=== PATIENT | male | born 1935 | race Caucasian/White ===

== ENCOUNTER 2018-08-12 09:46 | Emergency (ER) | payer MEDICARE, OTHER ==
[~2018-08-12] VITALS: Ht 188 cm; Wt 83.5 kg
[~2018-08-12 09:46] MED LIST: ANTI1CAP3 PO; FISH1CAP15 PO; IRON1TAB94 PO; LOSA100T7 PO; PNT40TEC PO; SIMV40TA4 PO
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
--- OUTSIDE RECORDS SUMMARY | 2018-08-12 09:51 | XMS REPORT | Continuity of Care Document ---
Author Author [facility] Organization [facility] Address Unknown Phone Unavailable Care Team Providers Care Supervisor Doping Name Role Phone MARGARITA STEINER MD PP Insurance Providers Payer Name Policy Number Subscriber Name Relationship [facility] [id number] Hugo Schuler Self / Same As Patient Wps Medicare [id number] Hugo Schuler Self / Same As Patient Advance Directives Directive Response Recorded Date Advance Directives N 04/27/13 10:28am Health Care Power of [employer] Logger N 04/27/13 10:28am Organ Donor Y 04/27/13 10:28am Problems No Known Problems or Medical conditions. Allergies, Adverse Reactions, Alerts Allergen Type Severity Reaction Last Updated No Known Drug Allergies 04/27/13 Medications Medication Dose Units Route Sig Qty Days Pantoprazole Sodium (Protonix) 1 Tab PO DAILY 30 Fish Oil/Dha/Epa (Fish Oil 1,200 Mg Fish Oil) 1200 Mg PO DAILY Iron &Iron Asp Gly/Fa/Mv,Min38 (Iron Tablet) 1 Tab PO DAILY Antiox #11/Om3/Dha/Epa/Lut/Mora (Ocuvite Adult 50+ Softgel) 1 Cap PO DAILY Simvastatin 20 Mg PO HS Losartan Potassium 50 Mg PO DAILY Response Recorded Date/Time Status not known Unknown Results Test Date Result Interp. Ref. Range Absolute Reticulocyte Count April 12, 2013 9:30am 27 10^3/uL N 22-82 Acanthocytes April 12, 2013 9:30am SLIGHT - Alanine Aminotransferase (ALT/SGPT) April 12, 2013 9:30am 39 U/L N 30-65 Albumin April 12, 2013 9:30am 2.7 G/DL L 3.4-5.0 Alkaline Phosphatase April 12, 2013 9:30am 120 U/L N 50-136 Anisocytosis April 12, 2013 9:30am MODERATE - Aspartate Amino Transf (AST/SGOT) April 12, 2013 9:30am 18 U/L N 15-37 Atypical Lymphocytes April 12, 2013 9:30am 1 % - BUN/Creatinine Ratio April 12, 2013 9:30am 20 - Band Neutrophils April 12, 2013 9:30am 7 % - Basophils # (Auto) April 12, 2013 9:30am 0.0 10^3/uL N 0.0-0.1 Basophils % (Manual) April 12, 2013 9:30am 1 % - Basophils (%) (Auto) April 12, 2013 9:30am 0 % N 0-10 Blood Urea Nitrogen April 12, 2013 9:30am 22 MG/DL H 7-18 Calcium Level April 12, 2013 9:30am 9.1 MG/DL N 8.5-10.1 Carbon Dioxide Level April 12, 2013 9:30am 27 MMOL/L N 21-32 Chloride Level April 12, 2013 9:30am 102 MMOL/L N 101-110 Creatinine April 12, 2013 9:30am 1.1 MG /DL N 0.6-1.3 Elliptocytes April 12, 2013 9:30am SLIGHT - Eosinophils # (Auto) April 12, 2013 9:30am 0.3 10^3/uL N 0.0-0.3 Eosinophils % (Manual) April 12, 2013 9:30am 2 % - Eosinophils (%) (Auto) April 12, 2013 9:30am 2 % N 0-10 Glucose Level April 12, 2013 9:30am 103 MG/DL N 74-106 Hematocrit April 12, 2013 9:30am 39 % L 40-54 Hemoglobin April 12, 2013 9:30am 13.1 G /DL L 13.3-17.7 Lactate Dehydrogenase April 12, 2013 9:30am 150 U/L N 115-218 Lymphocytes # (Auto) April 12, 2013 9:30am 1.7 X 10^3 N 1.0-4.0 Lymphocytes % (Manual) April 12, 2013 9:30am 10 % - Lymphocytes (%) (Auto) April 12, 2013 9:30am 13 % N 12-44 Mean Corpuscular Hemoglobin April 12, 2013 9:30am 28 PG N 25-34 Mean Corpuscular Hemoglobin Concent April 12, 2013 9:30am 34 G/DL N 32-36 Mean Corpuscular Volume April 12, 2013 9:30am 82 FL N 80-99 Mean Platelet Volume April 12, 2013 9:30am 12.4 FL H 7.4-10.4 Microcytosis April 12, 2013 9:30am SLIGHT - Monocytes # (Auto) April 12, 2013 9:30am 1.0 X 10^3 N 0.0-1.0 Monocytes % (Manual) April 12, 2013 9:30am 6 % - Monocytes (%) (Auto) April 12, 2013 9:30am 8 % N 0-12 Neutrophils # (Auto) April 12, 2013 9:30am 10.2 X 10^3 H 1.8-7.8 Neutrophils % (Manual) April 12, 2013 9:30am 67 % - Neutrophils (%) (Auto) April 12, 2013 9:30am 77 % H 42-75 Percent Reticulocyte Count April 12, 2013 9:30am 0.57 % N 0.50-2.40 Platelet Count April 12, 2013 9:30am 90 10^3/uL L 130-400 Poikilocytosis April 12, 2013 9:30am SLIGHT - Potassium Level April 12, 2013 9:30am 4.0 MMOL/L N 3.6-5.0 Reactive Lymphocytes April 12, 2013 9:30am 6 % - Red Blood Count April 12, 2013 9:30am 4.76 10^6/uL N 4.35-5.85 Red Cell Distribution Width April 12, 2013 9:30am 22.1 % H 10.0-14.5 Rouleau April 12, 2013 9:30am SLIGHT - Schistocytes April 12, 2013 9:30am SLIGHT - Sodium Level April 12, 2013 9:30am 133 MMOL/L L 135-145 Tear Drop Cells April 12, 2013 9:30am SLIGHT - Total Bilirubin April 12, 2013 9:30am 0.7 MG/DL N 0.0-1.0 Total Protein April 12, 2013 9:30am 7.2 G/DL N 6.4-8.2 White Blood Count April 12, 2013 9:30am 13.3 10^3/uL H 4.3-11.0 Estimat Glomerular Filtration Rate April 12, 2013 9:30am > 60 - Encounters Encounter Location Date/Time Pre-admitted Inpatient [facility] 10/05
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
[2018-08-12 10:11] LABS: HEMOGLOBIN 14.3 G/DL (13.3-17.7); MEAN PLATELET VOLUME 9.8 FL (7.4-10.4); RED BLOOD COUNT 4.88 10^6/uL (4.35-5.85); RED CELL DISTRIBUTION WIDTH 13.5 % (10.0-14.5); WHITE BLOOD COUNT 8.2 10^3/uL (4.3-11.0)
[2018-08-12 10:30] LABS: ALANINE AMINOTRANSFERASE 28 U/L (0-55); ALKALINE PHOSPHATASE 79 U/L (40-136); BILIRUBIN,DIRECT 0.3 MG/DL (0.0-0.3); BILIRUBIN,INDIRECT 0.5 MG/DL; BILIRUBIN,TOTAL 0.8 MG/DL (0.1-1.0); BUN/CREATININE RATIO 12; CALCIUM 9.2 MG/DL (8.5-10.1); CARBON DIOXIDE 20 MMOL/L (21-32); CHLORIDE 105 MMOL/L (98-107); CREATININE SERUM 1.05 MG/DL (0.60-1.30); GFR ESTIMATED > 60; GLUCOSE 122 MG/DL (70-105); POTASSIUM 3.8 MMOL/L (3.6-5.0); SODIUM 136 MMOL/L (135-145); TOTAL PROTEIN 7.4 GM/DL (6.4-8.2)
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
[2018-08-12 11:43] LABS: BILIRUBIN,URINE NEGATIVE (NEGATIVE); CLARITY,URINE CLEAR; COLOR,URINE YELLOW; GLUCOSE, URINE (UA) NEGATIVE (NEGATIVE); KETONES,URINE NEGATIVE (NEGATIVE); LEUKOCYTE ESTERASE ,URINE NEGATIVE (NEGATIVE); NITRITE,URINE NEGATIVE (NEGATIVE); PH,URINE 7 (5-9); PROTEIN,URINE 2+ (NEGATIVE); UROBILINOGEN,URINE NORMAL (NORMAL)
[2018-08-12 11:57] LABS: BACTERIA,URINE NEGATIVE /HPF; SQUAMOUS EPITHELIAL CELL,UR 0-2 /HPF
[2018-08-12 12:17] VITALS: BP 148/82
== END 2018-08-12 12:17 | disposition short-term general hospital (02) ==
LOC: EDUNIT# 09:46 → ER 09:47
DX: S06.6X9A Traumatic subarachnoid hemorrhage with loss of consciousness of unspecified duration, initial encounter (principal); S51.012A Laceration without foreign body of left elbow, initial encounter; M54.2 Cervicalgia; I10 Essential (primary) hypertension; E78.5 Hyperlipidemia, unspecified; R40.2142 Coma scale, eyes open, spontaneous, at arrival to emergency department; R40.2252 Coma scale, best verbal response, oriented, at arrival to emergency department; R40.2362 Coma scale, best motor response, obeys commands, at arrival to emergency department; Z87.891 Personal history of nicotine dependence; V43.51XA Car driver injured in collision with sport utility vehicle in traffic accident, initial encounter
CPT/HCPCS: 36415; 70450; 71046; 72125; 80048; 80076; 80320; 81000; 84484; 85027; 93005; 93041